=== PATIENT | female | born 1985 ===

== ENCOUNTER 2018-04-12 10:32 | Inpatient (IN) | payer MEDICARE, MEDICAID ==
[2018-04-12 10:33] VITALS: BMI 29.2
[2018-04-12] MEDS ORDERED: Sodium Chloride 0.9% 1,000 ML IV STA (11:38)
[2018-04-12 12:15] LABS: SQUAMOUS EPITHIAL 2 /hpf (0-5); URINE BILIRUBIN NEGATIVE (NEGATIVE); URINE BLOOD NEGATIVE (NEGATIVE); URINE CLARITY SLIGHTY-CLOUDY (Clear); URINE COLOR YELLOW (YELLOW); URINE GLUCOSE (UA) >=500 mg/dL (Normal); URINE LEUKOCYTE ESTERASE NEG Leu/uL (Negative); URINE PROTEIN 30 mg/dL (NEGATIVE); URINE UROBILINOGEN 0.2-1.0 mg/dL (0.2-1.0)
[2018-04-12 13:04] LABS: BASO # 0.1 K/uL (0.0-0.2); BASO % 0.7 % (0.0-2.0); HEMOGLOBIN 14.8 g/dL (12.0-16.0); LYMPH % 4.8 % (20.0-40.0); MEAN CORPUSCULAR HEMOGLOBIN 31.7 pg (27.0-31.0); MEAN CORPUSCULAR HGB CONC 33.7 g/dL (33.0-37.0); MEAN PLATELET VOLUME 9.1 fl (7.2-11.7); MONO # 0.7 K/uL (0.0-0.8); MONO % 3.4 % (0.0-10.0); NEUT # 19.4 K/uL (1.8-7.0); NEUT % 91.1 % (50.0-75.0); NRBC % 0.1 % (0.0-0.0); PLATELET COUNT 350 K/uL (130-400); RBC 4.68 Mil/uL (3.80-5.20); RED CELL DISTRIBUTION WIDTH 13.7 % (11.5-14.5); WHITE BLOOD COUNT 21.3 K/uL (4.8-10.8)
[2018-04-12 13:07] LABS: ALB/GLOB RATIO 1.2 (1.0-2.1); ALBUMIN 5.3 g/dL (3.5-5.0); BLOOD UREA NITROGEN 20 mg/dl (7-17); CALCIUM 10.7 mg/dL (8.4-10.2); GFR NON-AFRICAN AMERICAN > 60
[2018-04-12 13:16] LABS: ALT/SGPT 30 U/L (9-52); AST/SGOT 34 U/L (14-36)
[2018-04-12 14:33] LABS: BANDS 1 % (0-2); BASOPHIL 1 % (0-2); HYPERSEGMENTATION PRESENT; LYMPHOCYTE 3 % (20-50); MONOCYTE 2 % (0-10); NEUTROPHIL 93 % (42-75); PLATELET ESTIMATE NORMAL (NORMAL); TOTAL CELLS COUNTED 100
--- NOTE | 2018-04-12 14:51 | ED PDOC ---
HPI: Abdomen Time Seen by Provider: 04/12/18 10:59 Chief Complaint (Nursing): Back Pain History Per: Patient (Renae presents to the ER because of right sided hip and thigh pain. She was seen at [facility] yesterday because of abdominal pain and vomiting multiple episodes. She was given a diagnosis of hyperemesis gravidarum after it was discovered that she is , making her with a miscarriage. She is also a type1 DM with h/o DKA with neuropathy. She had to stop some of pain meds because of the .) Outside of [place] travel?: No Past Medical History Reviewed: Historical Data Vital Signs: Last Vital Signs Temp 98.1 F 04/12/18 10:44 Pulse 103 H 04/12/18 10:44 Resp 19 04/12/18 10:44 BP 149/95 H 04/12/18 10:44 Pulse Ox 96 04/12/18 10:44 - Medical History PMH: Anxiety, Arthritis, Depression, Diabetes (Type 1), Gastritis, HTN, Hypercholesterolemia, Hyperthyroidism, Hypothyroidism, Migraine, Pancreatitis Denies: Chronic Kidney Disease - Surgical History Surgical History: Appendectomy (2014) - Family History Family History: States: Unknown Family Hx - Immunization History Hx Tetanus Toxoid Vaccination: No Hx Influenza Vaccination: No Hx Pneumococcal Vaccination: No - Home Medications Home Medications: Ambulatory Orders Medication Instructions Recorded Insulin Lispro [Humalog Kwikpen 0 unit SQ TID 08/08/17 U-100] Clonazepam [Klonopin] 0.5 mg PO DAILY 08/21/17 DULoxetine [Cymbalta] 30 mg PO DAILY 08/21/17 Ezetimibe/Simvastatin [Vytorin 1 tab PO DAILY 08/21/17 10-10 mg Tablet] Levothyroxine Sodium 0.05 mg PO DAILY 08/21/17 Metoclopramide [Reglan] 10 mg PO DAILY 08/21/17 Ondansetron ODT [Zofran ODT] 4 mg PO DAILY 08/21/17 Pregabalin [Lyrica] 75 mg PO DAILY 08/21/17 QUEtiapine [SEROquel] 50 mg PO DAILY 08/21/17 Sertraline [Zoloft] 100 mg PO DAILY 08/21/17 Sucralfate [Carafate] 1 gm PO DAILY 08/21/17 Zolpidem [Ambien] 10 mg PO DAILY 08/21/17 Ezetimibe [Zetia] 10 mg PO HS tab 09/01/17 Insulin Glargine, Recombina 40 unit SC HS 30 Days unit 09/01/17 [Lantus] Rosuvastatin Calcium 2.5 [Crestor] 2.5 mg PO HS #30 tab 09/01/17 Telavancin Hydrochloride [Vibativ] 750 mg IVPB Q24H 35 Days vial 09/01/17 cloNIDine [Catapres] 0.1 mg PO HS #30 tab 09/01/17 Gabapentin [Neurontin] 300 mg PO DAILY 30 Days cap 11/25/17 Insulin Aspart, Recombinant 10 unit SC AC 30 Days unit 11/25/17 [Novolog] Metoclopramide [Reglan] 1 tab PO TID PRN #25 tab 04/11/18 - Allergies Allergies/Adverse Reactions: Allergies Allergy/AdvReac Type Severity Reaction Status Date / Time apple Allergy RASH Verified 04/12/18 10:38 jain Allergy RASH Verified 04/12/18 10:38 EGG Allergy RASH Verified 04/12/18 10:38 peanut Allergy RASH Verified 04/12/18 10:38 walnut Allergy RASH Verified 04/12/18 10:38 seasonal Allergy RASH Uncoded 04/12/18 10:38 Review of Systems ROS Statement: Except As Marked, All Systems Reviewed And Found Negative Constitutional: Negative for: Fever, Chills Gastrointestinal: Positive for: Nausea, Vomiting Genitourinary Female: Negative for: Dysuria, Frequency Musculoskeletal: Positive for: Leg Pain Physical Exam - Reviewed Nursing Documentation Reviewed: Yes Vital Signs Reviewed: Yes - Physical Exam Appears: Positive for: Well, Non-toxic, Uncomfortable Head Exam: Positive for: ATRAUMATIC, NORMAL INSPECTION, NORMOCEPHALIC Skin: Positive for: Normal Color, Warm, DRY Eye Exam: Positive for: EOMI, Normal appearance, PERRL ENT: Positive for: Normal ENT Inspection Neck: Positive for: Normal, Painless ROM Cardiovascular/Chest: Positive for: Regular Rate, Rhythm Respiratory: Positive for: CNT, Normal Breath Sounds Gastrointestinal/Abdominal: Positive for: Normal Exam, Soft Back: Positive for: Normal Inspection Extremity: Positive for: Normal ROM Neurologic/Psych: Positive for: Alert, Oriented - Laboratory Results Result Diagrams: 04/12/18 12:16 04/12/18 12:16 - ECG O2 Sat by Pulse Oximetry: 96 Medical Decision Making Medical Decision Making: given patient's h/o type1 DM and hyperemesis, patient should benefit from admission for hydration and control of her symptoms. Case d/w Dr. Montoya. Patient's PMD NinaYisel Dang does not admit here. Patient's clinical science consultant is Ronnell Yi. Disposition - Clinical Impression Clinical Impression: Hyperemesis - Patient ED Disposition Is Patient to be Admitted: Transfer of Care Doctor Will See Patient In The: Hospital - Disposition Disposition: Transfer of Care Disposition Time: 14:54 Condition: GUARDED Instructions: Nausea and Vomiting, Adult (DC) - Pt Status Changed To: Hospital Disposition Of: Observation - POA Present On Arrival: None
[2018-04-12] MEDS ORDERED: Insulin Lispro (humaLOG) 100 Units/ml Inj SC STA (15:42)
[2018-04-12] MEDS ORDERED: Acetaminophen 650mg/20.3ml solution UD PO ONE (15:44)
[2018-04-12] MEDS ORDERED: Acetaminophen 325 MG/10.15 ML ONE (15:48)
[2018-04-12 16:55] LABS: BARBITURATES, UR NEGATIVE (NEGATIVE); BENZODIAZEPINES, UR NEGATIVE (NEGATIVE); OPIATES, UR NEGATIVE (NEGATIVE); PHENCYCLIDINE, UR NEGATIVE (NEGATIVE)
[2018-04-12] MEDS ORDERED: Glucagon Recombinant 1 mg Inj IM PRN (17:24)
[2018-04-12] MEDS ORDERED: Dextrose 50% SYRINGE Inj (50 ml) IV PRN (17:24)
[2018-04-12] MEDS: Potassium Chl 40 mEq in D5-1/2 1,000 ML IV SCH ×3 (17:32→22:21)
[2018-04-12 17:49] LABS: BLOOD UREA NITROGEN 20 mg/dl (7-17); GFR NON-AFRICAN AMERICAN > 60
--- NOTE | 2018-04-12 18:10 | US ---
Date of service: 04/12/2018 PROCEDURE: OB Pelvic Ultrasound HISTORY: FHR LMP: COMPARISON: None available. FINDINGS: UTERUS: Gestational sac: Single intrauterine gestational sac. Gestational sac diameter measures 0.3 cm too small to characterize gestational age. Yolk sac and pole are not visualized. Jewell-gestational hemorrhage: None. Uterus measures 6.7 x 3.2 x 4.9 cm. Normal in size and appearance. CERVIX: Measures 3.1 cm. Long and closed. No cervical abnormality seen. RIGHT OVARY: Measures 3.1 x 2.2 x 3.6 cm. No mass lesion. Normal flow. There is a 1.8 x 1.2 x 1.6 cm complicated cyst. LEFT OVARY: Measures 2.9 x 1.8 x 2.4 cm. No solid mass. Normal flow. FREE FLUID: None. OTHER FINDINGS: None. IMPRESSION: Single intrauterine gestational sac too small to characterize gestational age. Short-term clinical and ultrasound follow-up is recommended to confirm viability.
--- NOTE | 2018-04-12 18:46 | CP.PCM.HP ---
Past Patient History - Infectious Disease Hx of Infectious Diseases: None - Tetanus Immunizations Tetanus Immunization: Unknown - Past Medical History & Family History Past Medical History?: Yes - Past Social History Smoking Status: Never Smoked - CARDIAC Hx Hypercholesterolemia: Yes Hx Hypertension: Yes - NEUROLOGICAL Hx Migraine: Yes - HEENT Hx HEENT Problems: No - RENAL Hx Chronic Kidney Disease: No - ENDOCRINE/METABOLIC Hx Hyperthyroidism: Yes Hx Hypothyroidism: Yes - INTEGUMENTARY Hx Psoriasis: Yes - MUSCULOSKELETAL/RHEUMATOLOGICAL Hx Arthritis: Yes - GASTROINTESTINAL Hx Gastritis: Yes Hx Pancreatitis: Yes - PSYCHIATRIC Hx Anxiety: Yes Hx Depression: Yes - SURGICAL HISTORY Hx Appendectomy: Yes (2014) - ANESTHESIA Hx Anesthesia: Yes Hx Anesthesia Reactions: No Hx Malignant Hyperthermia: No Meds Allergies/Adverse Reactions: Allergies Allergy/AdvReac Type Severity Reaction Status Date / Time apple Allergy RASH Verified 04/12/18 10:38 jain Allergy RASH Verified 04/12/18 10:38 EGG Allergy RASH Verified 04/12/18 10:38 peanut Allergy RASH Verified 04/12/18 10:38 walnut Allergy RASH Verified 04/12/18 10:38 seasonal Allergy RASH Uncoded 04/12/18 10:38 Physical Exam - Constitutional Appears: Well - Head Exam Head Exam: ATRAUMATIC, NORMAL INSPECTION, NORMOCEPHALIC - Eye Exam Eye Exam: EOMI, Normal appearance, PERRL Pupil Exam: NORMAL ACCOMODATION, PERRL - ENT Exam ENT Exam: Mucous Membranes Moist, Normal Exam - Neck Exam Neck exam: Positive for: Normal Inspection - Respiratory Exam Respiratory Exam: Decreased Breath Sounds - Cardiovascular Exam Cardiovascular Exam: REGULAR RHYTHM, +S1, +S2 - GI/Abdominal Exam GI & Abdominal Exam: Diminished Bowel Sounds, Soft - Rectal Exam Rectal Exam: Deferred Results - Vital Signs Recent Vital Signs: Last Vital Signs Temp 98.8 F 04/12/18 17:42 Pulse 85 04/12/18 17:42 Resp 20 04/12/18 17:42 BP 144/89 04/12/18 17:42 Pulse Ox 100 04/12/18 17:42 - Labs Result Diagrams: 04/12/18 12:16 04/12/18 16:56 Labs: Laboratory Results - last 24 hr 04/12/18 04/12/18 04/12/18 10:38 11:52 11:56 WBC RBC Hgb Hct MCV MCH MCHC RDW Plt Count MPV Neut % (Auto) Lymph % (Auto) [place] % (Auto) Eos % (Auto) Baso % (Auto) Neut # (Auto) Lymph # (Auto) [place] # (Auto) Eos # (Auto) Baso # (Auto) Neutrophils % (Manual) Band Neutrophils % Lymphocytes % (Manual) Monocytes % (Manual) Basophils % (Manual) Hypersegmented Polys Platelet Estimate RBC Morphology Sodium Potassium Chloride Carbon Dioxide Anion Gap BUN Creatinine Est GFR ( Amer) Est GFR (Non-Af Amer) POC Glucose (mg/dL) 237 H 264 H Random Glucose Lactic Acid Calcium Total Bilirubin AST ALT Alkaline Phosphatase Total Protein Albumin Globulin Albumin/Globulin Ratio Lipase Beta HCG, Quant Urine Color Yellow Urine Clarity Slighty-cloudy Urine pH 5.0 Ur Specific Cardale 1.026 Urine Protein 30 Urine Glucose (UA) >=500 Urine Ketones 80 Urine Blood Negative Urine Nitrate Negative Urine Bilirubin Negative Urine Urobilinogen 0.2-1.0 Ur Leukocyte Esterase Neg Urine RBC (Auto) 2 Urine Microscopic WBC 1 Ur Squamous Epith Cells 2 Hyaline Casts 3-5 H Urine Opiates Screen Urine Methadone Screen Ur Barbiturates Screen Ur Phencyclidine Scrn Ur Amphetamines Screen U Benzodiazepines Scrn U Oth Cocaine Metabols U Cannabinoids Screen 04/12/18 04/12/18 04/12/18 12:16 12:16 15:29 WBC 21.3 H RBC 4.68 Hgb 14.8 Hct 44.0 MCV 94.0 MCH 31.7 H MCHC 33.7 RDW 13.7 Plt Count 350 MPV 9.1 Neut % (Auto) 91.1 H Lymph % (Auto) 4.8 L [place] % (Auto) 3.4 Eos % (Auto) 0.0 Baso % (Auto) 0.7 Neut # (Auto) 19.4 H Lymph # (Auto) 1.0 [place] # (Auto) 0.7 Eos # (Auto) 0.0 Baso # (Auto) 0.1 Neutrophils % (Manual) 93 H Band Neutrophils % 1 Lymphocytes % (Manual) 3 L Monocytes % (Manual) 2 Basophils % (Manual) 1 Hypersegmented Polys Present Platelet Estimate Normal RBC Morphology Normal Sodium 144 Potassium 4.6 Chloride 101 Carbon Dioxide 18 L Anion Gap 30 H BUN 20 H Creatinine 0.6 L Est GFR ( Amer) > 60 Est GFR (Non-Af Amer) > 60 POC Glucose (mg/dL) Random Glucose 230 H Lactic Acid Calcium 10.7 H Total Bilirubin 0.8 AST 34 ALT 30 Alkaline Phosphatase 100 Total Protein 9.8 H Albumin 5.3 H Globulin 4.5 H Albumin/Globulin Ratio 1.2 Lipase 157 Beta HCG, Quant 1463.40 Urine Color Urine Clarity Urine pH Ur Specific Cardale Urine Protein Urine Glucose (UA) Urine Ketones Urine Blood Urine Nitrate Urine Bilirubin Urine Urobilinogen Ur Leukocyte Esterase Urine RBC (Auto) Urine Microscopic WBC Ur Squamous Epith Cells Hyaline Casts Urine Opiates Screen Urine Methadone Screen Ur Barbiturates Screen Ur Phencyclidine Scrn Ur Amphetamines Screen U Benzodiazepines Scrn U Oth Cocaine Metabols U Cannabinoids Screen 04/12/18 04/12/18 04/12/18 16:34 16:56 16:56 WBC RBC Hgb Hct MCV MCH MCHC RDW Plt Count MPV Neut % (Auto) Lymph % (Auto) [place] % (Auto) Eos % (Auto) Baso % (Auto) Neut # (Auto) Lymph # (Auto) [place] # (Auto) Eos # (Auto) Baso # (Auto) Neutrophils % (Manual) Band Neutrophils % Lymphocytes % (Manual) Monocytes % (Manual) Basophils % (Manual) Hypersegmented Polys Platelet Estimate RBC Morphology Sodium 142 Potassium 3.2 L Chloride 103 Carbon Dioxide 18 L Anion Gap 24 H BUN 20 H Creatinine 0.5 L Est GFR ( Amer) > 60 Est GFR (Non-Af Amer) > 60 POC Glucose (mg/dL) Random Glucose 182 H Lactic Acid 1.5 Calcium 10.0 Total Bilirubin AST ALT Alkaline Phosphatase Total Protein Albumin Globulin Albumin/Globulin Ratio Lipase Beta HCG, Quant Urine Color Urine Clarity Urine pH Ur Specific Cardale Urine Protein Urine Glucose (UA) Urine Ketones Urine Blood Urine Nitrate Urine Bilirubin Urine Urobilinogen Ur Leukocyte Esterase Urine RBC (Auto) Urine Microscopic WBC Ur Squamous Epith Cells Hyaline Casts Urine Opiates Screen Negative Urine Methadone Screen Negative Ur Barbiturates Screen Negative Ur Phencyclidine Scrn Negative Ur Amphetamines Screen Negative U Benzodiazepines Scrn Negative U Oth Cocaine Metabols Negative U Cannabinoids Screen Positive H
[2018-04-12 22:02] LABS: BLOOD UREA NITROGEN 18 mg/dl (7-17); GFR NON-AFRICAN AMERICAN > 60
[2018-04-12] MEDS: Insulin Regular 100 units/ml SC SCH (22:19)
[2018-04-13] MEDS: Potassium Chl 40 mEq in D5-1/2 1,000 ML IV SCH ×2 (02:37→07:03)
[2018-04-13] MEDS ORDERED: Insulin Regular 100 units/ml SC STA (05:57)
[2018-04-13 05:58] LABS: MEAN CELL VOLUME 95.9 fl (81.0-99.0); MEAN CORPUSCULAR HEMOGLOBIN 31.9 pg (27.0-31.0); MEAN CORPUSCULAR HGB CONC 33.3 g/dL (33.0-37.0); RBC 4.38 Mil/uL (3.80-5.20); RED CELL DISTRIBUTION WIDTH 13.5 % (11.5-14.5); WHITE BLOOD COUNT 19.8 K/uL (4.8-10.8)
[2018-04-13 06:38] LABS: BLOOD UREA NITROGEN 12 mg/dl (7-17); CALCIUM 9.5 mg/dL (8.4-10.2); GFR NON-AFRICAN AMERICAN > 60
[2018-04-13] MEDS ORDERED: Insulin Regular 100 units/ml IV STA (07:16)
[2018-04-13] MEDS ORDERED: Sodium Chloride 0.9% 1,000 ML IV STA (07:21)
[2018-04-13] MEDS: Insulin Regular 100 units/ml SC SCH (08:19)
[2018-04-13] MEDS: Prenatal Multivit/Folic Acid/Iron Tab PO SCH (08:20)
[2018-04-13 10:50] LABS: BLOOD UREA NITROGEN 10 mg/dl (7-17); CALCIUM 9.2 mg/dL (8.4-10.2); GFR NON-AFRICAN AMERICAN > 60
--- NOTE | 2018-04-13 10:50 | CP.PCM.HP ---
<Royer Rubio - Last Filed: 04/13/18 16:39> History of Present Illness - History of Present Illness History of Present Illness: HPI Pt is a 32 y/o female with hx of IDDM, Gastroparesis, Peripheral Neuropathy, Anxiety/Panic disorder, and Opiod dependency who presented to ED with complaints of right flank and thigh pain she describes as "burning." Mother states this p ain is typical of her neuropathic pain that she has when she does not take her medication. Pt states she learned she was yesterday and has not been compliant with her medication so as to not harm the fetus. She also endoreses nausea and vomoting multiple times per day for the past week with poor po intake.Of note, pt was evaluated at [facility] ED yesterday for same symptoms, had TVUS that noted an early gestational sac, good blood flow to both ovaries, and no other abnormalities. She was treated with Zofran and discharged on Reglan with diagnosis Hyperemesis Gravidarum. Denies any cough, fever/chills, dysuria, diarrhea, constipation, recent illness, or prolonged immobility. PMD: Dr. Ronnell Dang Manager E Commerce: Dr. Yi PMHX: Anxiety/Panic Disorder, IDDM, neuropathy, gastroparesis Meds: See med rec Hospital admission: Pt has frequent admissions over the past year at [facility] for DKA Social: Smokes weed, deneis ehavy alcohol use, Opiod dependency (diagnosed by Psychiatrist at [facility] from admission in 02/2018) ED Course: -Vitals HR 103, BP 149/95, O2 sat 96 on rm air -Pt noted to be sleeping comfortably but upon awakening became hysterical complaining of pain, shortly after seen sleeping comfortably w/o intervention. -CBC: WBC 21.3 -Acchucheck 237 -CMP: Na 144, K 4.6, Cl 101, Aniong Gap 30, Bicarb 18, BUN 20, Cr 0.6 -S/P Zofran and Pepcid -Lispro 10 units -1 L NS bolus -Maintanence fluids D50.5 NS K40 at 250cc/hr Present on Admission - Present on Admission Any Indicators Present on Admission: No Past Patient History - Infectious Disease Hx of Infectious Diseases: None - Tetanus Immunizations Tetanus Immunization: Unknown - Past Medical History & Family History Past Medical History?: Yes - Past Social History Smoking Status: Never Smoked - CARDIAC Hx Hypercholesterolemia: Yes Hx Hypertension: Yes - NEUROLOGICAL Hx Migraine: Yes - HEENT Hx HEENT Problems: No - RENAL Hx Chronic Kidney Disease: No - ENDOCRINE/METABOLIC Hx Diabetes Mellitus Type 1: Yes Hx Hyperthyroidism: Yes Hx Hypothyroidism: Yes - HEMATOLOGICAL/ONCOLOGICAL Hx AIDS: No Hx Anemia: No Hx Blood Transfusions: No Hx Human Immunodeficiency Virus (HIV): No - INTEGUMENTARY Hx Psoriasis: Yes - MUSCULOSKELETAL/RHEUMATOLOGICAL Hx Arthritis: Yes Hx Falls: No - GASTROINTESTINAL Hx Gastritis: Yes Hx Pancreatitis: Yes - PSYCHIATRIC Hx Anxiety: Yes Hx Depression: Yes Hx Substance Use: No - SURGICAL HISTORY Hx Appendectomy: Yes (2014) - ANESTHESIA Hx Anesthesia: Yes Hx Anesthesia Reactions: No Hx Malignant Hyperthermia: No Meds Allergies/Adverse Reactions: Allergies Allergy/AdvReac Type Severity Reaction Status Date / Time apple Allergy RASH Verified 04/12/18 10:38 jain Allergy RASH Verified 04/12/18 10:38 EGG Allergy RASH Verified 04/12/18 10:38 peanut Allergy RASH Verified 04/12/18 10:38 walnut Allergy RASH Verified 04/12/18 10:38 seasonal Allergy RASH Uncoded 04/12/18 10:38 Physical Exam - Constitutional Appears: No Acute Distress (Intermittely agitated but spotnaneously seen calm and sleeping) - Head Exam Head Exam: NORMAL INSPECTION - Eye Exam Eye Exam: Normal appearance - ENT Exam ENT Exam: Mucous Membranes Moist - Respiratory Exam Respiratory Exam: Clear to Auscultation Bilateral. absent: Rales, Wheezes - Cardiovascular Exam Cardiovascular Exam: REGULAR RHYTHM, +S1, +S2. absent: Systolic Murmur - GI/Abdominal Exam GI & Abdominal Exam: Distended, Normal Bowel Sounds, Soft. absent: Guarding, Tenderness - Extremities Exam Extremities exam: Positive for: normal capillary refill, normal inspection, pedal pulses present. Negative for: joint swelling - Back Exam Back exam: absent: CVA tenderness (L), CVA tenderness (R), rash noted - Neurological Exam Neurological exam: Alert, Oriented x3 - Psychiatric Exam Psychiatric exam: Anxious - Skin Skin Exam: Normal Color Additional comments: No rash or vesicles Results - Vital Signs Recent Vital Signs: Last Vital Signs Temp 97.9 F 04/13/18 09:55 Pulse 96 H 04/13/18 09:55 Resp 16 04/13/18 09:55 BP 161/89 H 04/13/18 09:55 Pulse Ox 100 04/13/18 09:55 - Labs Result Diagrams: 04/13/18 05:30 04/13/18 14:35 Labs: Laboratory Results - last 24 hr 04/12/18 04/12/18 04/12/18 10:38 11:52 11:56 WBC RBC Hgb Hct MCV MCH MCHC RDW Plt Count MPV Neut % (Auto) Lymph % (Auto) Rich % (Auto) Eos % (Auto) Baso % (Auto) Neut # (Auto) Lymph # (Auto) Rich # (Auto) Eos # (Auto) Baso # (Auto) Neutrophils % (Manual) Band Neutrophils % Lymphocytes % (Manual) Monocytes % (Manual) Basophils % (Manual) Hypersegmented Polys Platelet Estimate RBC Morphology Sodium Potassium Chloride Carbon Dioxide Anion Gap BUN Creatinine Est GFR ( Amer) Est GFR (Non-Af Amer) POC Glucose (mg/dL) 237 H 264 H Random Glucose Lactic Acid Calcium Total Bilirubin AST ALT Alkaline Phosphatase Total Protein Albumin Globulin Albumin/Globulin Ratio Lipase Beta HCG, Quant Urine Color Yellow Urine Clarity Slighty-cloudy Urine pH 5.0 Ur Specific [place] 1.026 Urine Protein 30 Urine Glucose (UA) >=500 Urine Ketones 80 Urine Blood Negative Urine Nitrate Negative Urine Bilirubin Negative Urine Urobilinogen 0.2-1.0 Ur Leukocyte Esterase Neg Urine RBC (Auto) 2 Urine Microscopic WBC 1 Ur Squamous Epith Cells 2 Hyaline Casts 3-5 H Urine Opiates Screen Urine Methadone Screen Ur Barbiturates Screen Ur Phencyclidine Scrn Ur Amphetamines Screen U Benzodiazepines Scrn U Oth Cocaine Metabols U Cannabinoids Screen 04/12/18 04/12/18 04/12/18 12:16 12:16 15:29 WBC 21.3 H RBC 4.68 Hgb 14.8 Hct 44.0 MCV 94.0 MCH 31.7 H MCHC 33.7 RDW 13.7 Plt Count 350 MPV 9.1 Neut % (Auto) 91.1 H Lymph % (Auto) 4.8 L Rich % (Auto) 3.4 Eos % (Auto) 0.0 Baso % (Auto) 0.7 Neut # (Auto) 19.4 H Lymph # (Auto) 1.0 Rich # (Auto) 0.7 Eos # (Auto) 0.0 Baso # (Auto) 0.1 Neutrophils % (Manual) 93 H Band Neutrophils % 1 Lymphocytes % (Manual) 3 L Monocytes % (Manual) 2 Basophils % (Manual) 1 Hypersegmented Polys Present Platelet Estimate Normal RBC Morphology Normal Sodium 144 Potassium 4.6 Chloride 101 Carbon Dioxide 18 L Anion Gap 30 H BUN 20 H Creatinine 0.6 L Est GFR ( Amer) > 60 Est GFR (Non-Af Amer) > 60 POC Glucose (mg/dL) Random Glucose 230 H Lactic Acid Calcium 10.7 H Total Bilirubin 0.8 AST 34 ALT 30 Alkaline Phosphatase 100 Total Protein 9.8 H Albumin 5.3 H Globulin 4.5 H Albumin/Globulin Ratio 1.2 Lipase 157 Beta HCG, Quant 1463.40 Urine Color Urine Clarity Urine pH Ur Specific [place] Urine Protein Urine Glucose (UA) Urine Ketones Urine Blood Urine Nitrate Urine Bilirubin Urine Urobilinogen Ur Leukocyte Esterase Urine RBC (Auto) Urine Microscopic WBC Ur Squamous Epith Cells Hyaline Casts Urine Opiates Screen Urine Methadone Screen Ur Barbiturates Screen Ur Phencyclidine Scrn Ur Amphetamines Screen U Benzodiazepines Scrn U Oth Cocaine Metabols U Cannabinoids Screen 04/12/18 04/12/18 04/12/18 15:48 16:34 16:56 WBC RBC Hgb Hct MCV MCH MCHC RDW Plt Count MPV Neut % (Auto) Lymph % (Auto) Rich % (Auto) Eos % (Auto) Baso % (Auto) Neut # (Auto) Lymph # (Auto) Rich # (Auto) Eos # (Auto) Baso # (Auto) Neutrophils % (Manual) Band Neutrophils % Lymphocytes % (Manual) Monocytes % (Manual) Basophils % (Manual) Hypersegmented Polys Platelet Estimate RBC Morphology Sodium 142 Potassium 3.2 L Chloride 103 Carbon Dioxide 18 L Anion Gap 24 H BUN 20 H Creatinine 0.5 L Est GFR ( Amer) > 60 Est GFR (Non-Af Amer) > 60 POC Glucose (mg/dL) 130 H Random Glucose 182 H Lactic Acid Calcium 10.0 Total Bilirubin AST ALT Alkaline Phosphatase Total Protein Albumin Globulin Albumin/Globulin Ratio Lipase Beta HCG, Quant Urine Color Urine Clarity Urine pH Ur Specific [place] Urine Protein Urine Glucose (UA) Urine Ketones Urine Blood Urine Nitrate Urine Bilirubin Urine Urobilinogen Ur Leukocyte Esterase Urine RBC (Auto) Urine Microscopic WBC Ur Squamous Epith Cells Hyaline Casts Urine Opiates Screen Negative Urine Methadone Screen Negative Ur Barbiturates Screen Negative Ur Phencyclidine Scrn Negative Ur Amphetamines Screen Negative U Benzodiazepines Scrn Negative U Oth Cocaine Metabols Negative U Cannabinoids Screen Positive H 04/12/18 04/12/18 04/12/18 16:56 17:58 21:00 WBC RBC Hgb Hct MCV MCH MCHC RDW Plt Count MPV Neut % (Auto) Lymph % (Auto) Rich % (Auto) Eos % (Auto) Baso % (Auto) Neut # (Auto) Lymph # (Auto) Rich # (Auto) Eos # (Auto) Baso # (Auto) Neutrophils % (Manual) Band Neutrophils % Lymphocytes % (Manual) Monocytes % (Manual) Basophils % (Manual) Hypersegmented Polys Platelet Estimate RBC Morphology Sodium 135 Potassium 3.9 Chloride 99 Carbon Dioxide 16 L Anion Gap 24 H BUN 18 H Creatinine 0.5 L Est GFR ( Amer) > 60 Est GFR (Non-Af Amer) > 60 POC Glucose (mg/dL) 160 H Random Glucose 351 H Lactic Acid 1.5 Calcium 9.0 Total Bilirubin AST ALT Alkaline Phosphatase Total Protein Albumin Globulin Albumin/Globulin Ratio Lipase Beta HCG, Quant Urine Color Urine Clarity Urine pH Ur Specific [place] Urine Protein Urine Glucose (UA) Urine Ketones Urine Blood Urine Nitrate Urine Bilirubin Urine Urobilinogen Ur Leukocyte Esterase Urine RBC (Auto) Urine Microscopic WBC Ur Squamous Epith Cells Hyaline Casts Urine Opiates Screen Urine Methadone Screen Ur Barbiturates Screen Ur Phencyclidine Scrn Ur Amphetamines Screen U Benzodiazepines Scrn U Oth Cocaine Metabols U Cannabinoids Screen 04/12/18 04/13/18 04/13/18 21:49 05:09 05:11 WBC RBC Hgb Hct MCV MCH MCHC RDW Plt Count MPV Neut % (Auto) Lymph % (Auto) Rich % (Auto) Eos % (Auto) Baso % (Auto) Neut # (Auto) Lymph # (Auto) Rich # (Auto) Eos # (Auto) Baso # (Auto) Neutrophils % (Manual) Band Neutrophils % Lymphocytes % (Manual) Monocytes % (Manual) Basophils % (Manual) Hypersegmented Polys Platelet Estimate RBC Morphology Sodium Potassium Chloride Carbon Dioxide Anion Gap BUN Creatinine Est GFR ( Amer) Est GFR (Non-Af Amer) POC Glucose (mg/dL) 341 H 401 H* 420 H* Random Glucose Lactic Acid Calcium Total Bilirubin AST ALT Alkaline Phosphatase Total Protein Albumin Globulin Albumin/Globulin Ratio Lipase Beta HCG, Quant Urine Color Urine Clarity Urine pH Ur Specific [place] Urine Protein Urine Glucose (UA) Urine Ketones Urine Blood Urine Nitrate Urine Bilirubin Urine Urobilinogen Ur Leukocyte Esterase Urine RBC (Auto) Urine Microscopic WBC Ur Squamous Epith Cells Hyaline Casts Urine Opiates Screen Urine Methadone Screen Ur Barbiturates Screen Ur Phencyclidine Scrn Ur Amphetamines Screen U Benzodiazepines Scrn U Oth Cocaine Metabols U Cannabinoids Screen 04/13/18 04/13/18 04/13/18 05:30 05:30 06:42 WBC 19.8 H RBC 4.38 Hgb 14.0 Hct 42.0 MCV 95.9 MCH 31.9 H MCHC 33.3 RDW 13.5 Plt Count 301 MPV Neut % (Auto) Lymph % (Auto) Rich % (Auto) Eos % (Auto) Baso % (Auto) Neut # (Auto) Lymph # (Auto) Rich # (Auto) Eos # (Auto) Baso # (Auto) Neutrophils % (Manual) Band Neutrophils % Lymphocytes % (Manual) Monocytes % (Manual) Basophils % (Manual) Hypersegmented Polys Platelet Estimate RBC Morphology Sodium 139 Potassium 4.2 Chloride 100 Carbon Dioxide 14 L Anion Gap 29 H BUN 12 Creatinine 0.5 L Est GFR ( Amer) > 60 Est GFR (Non-Af Amer) > 60 POC Glucose (mg/dL) 460 H* Random Glucose 457 H* D Lactic Acid Calcium 9.5 Total Bilirubin AST ALT Alkaline Phosphatase Total Protein Albumin Globulin Albumin/Globulin Ratio Lipase Beta HCG, Quant Urine Color Urine Clarity Urine pH Ur Specific [place] Urine Protein Urine Glucose (UA) Urine Ketones Urine Blood Urine Nitrate Urine Bilirubin Urine Urobilinogen Ur Leukocyte Esterase Urine RBC (Auto) Urine Microscopic WBC Ur Squamous Epith Cells Hyaline Casts Urine Opiates Screen Urine Methadone Screen Ur Barbiturates Screen Ur Phencyclidine Scrn Ur Amphetamines Screen U Benzodiazepines Scrn U Oth Cocaine Metabols U Cannabinoids Screen 04/13/18 10:22 WBC RBC Hgb Hct MCV MCH MCHC RDW Plt Count MPV Neut % (Auto) Lymph % (Auto) Rich % (Auto) Eos % (Auto) Baso % (Auto) Neut # (Auto) Lymph # (Auto) Rich # (Auto) Eos # (Auto) Baso # (Auto) Neutrophils % (Manual) Band Neutrophils % Lymphocytes % (Manual) Monocytes % (Manual) Basophils % (Manual) Hypersegmented Polys Platelet Estimate RBC Morphology Sodium Potassium Chloride Carbon Dioxide Anion Gap BUN Creatinine Est GFR ( Amer) Est GFR (Non-Af Amer) POC Glucose (mg/dL) 256 H Random Glucose Lactic Acid Calcium Total Bilirubin AST ALT Alkaline Phosphatase Total Protein Albumin Globulin Albumin/Globulin Ratio Lipase Beta HCG, Quant Urine Color Urine Clarity Urine pH Ur Specific [place] Urine Protein Urine Glucose (UA) Urine Ketones Urine Blood Urine Nitrate Urine Bilirubin Urine Urobilinogen Ur Leukocyte Esterase Urine RBC (Auto) Urine Microscopic WBC Ur Squamous Epith Cells Hyaline Casts Urine Opiates Screen Urine Methadone Screen Ur Barbiturates Screen Ur Phencyclidine Scrn Ur Amphetamines Screen U Benzodiazepines Scrn U Oth Cocaine Metabols U Cannabinoids Screen Assessment & Plan - Assessment and Plan (Free Text) Assessment: 32 y/o female with hx of IDDM, Gastroparesis, Peripheral Neuropathy, Anxiety/Panic disorder, and Opiod dependency admitted for Mild DKA with acute episodes of agitation and complaints of r. sided pain. DKA -Mild, precipitating factor likely non compliance with medication -Endocrinology consulted, Cam: NS @200, Humalog 6 units AC, Levemir 20 units HS, Soft Diabetic Diet -Hemoglobin a1c 11.8 Right Sided pain (Flank --> Thigh) -Chronic, Likely neuropathic pain -Restarted home med, Gabapending 300mg daily as PRN. Category C. -Will limit as much as possible -Pain management consult 1st Trimester -Early gestational sac seen -OBGYN consulted; pt needs care established - vitamins -Counseled on avoiding harmful substances to fetus. Anxiety/Panic disorder -Psych consult Opiod Dependency -Limit Opiods DVT ppx SCD's for now Discussed case with Dr. Montoya <Dax Montoya - Last Filed: 04/13/18 16:59> Results - Vital Signs Recent Vital Signs: Last Vital Signs Temp 98.9 F 04/13/18 16:00 Pulse 90 04/13/18 16:00 Resp 20 04/13/18 16:00 BP 121/57 L 04/13/18 16:00 Pulse Ox 96 04/13/18 16:00 - Labs Result Diagrams: 04/13/18 05:30 04/13/18 14:35 Labs: Laboratory Results - last 24 hr 04/12/18 04/12/18 04/12/18 15:48 16:56 16:56 WBC RBC Hgb Hct MCV MCH MCHC RDW Plt Count Sodium 142 Potassium 3.2 L Chloride 103 Carbon Dioxide 18 L Anion Gap 24 H BUN 20 H Creatinine 0.5 L Est GFR ( Amer) > 60 Est GFR (Non-Af Amer) > 60 POC Glucose (mg/dL) 130 H Random Glucose 182 H Hemoglobin A1c Lactic Acid 1.5 Calcium 10.0 04/12/18 04/12/18 04/12/18 17:58 21:00 21:49 WBC RBC Hgb Hct MCV MCH MCHC RDW Plt Count Sodium 135 Potassium 3.9 Chloride 99 Carbon Dioxide 16 L Anion Gap 24 H BUN 18 H Creatinine 0.5 L Est GFR ( Amer) > 60 Est GFR (Non-Af Amer) > 60 POC Glucose (mg/dL) 160 H 341 H Random Glucose 351 H Hemoglobin A1c Lactic Acid Calcium 9.0 04/13/18 04/13/18 04/13/18 05:09 05:11 05:30 WBC 19.8 H RBC 4.38 Hgb 14.0 Hct 42.0 MCV 95.9 MCH 31.9 H MCHC 33.3 RDW 13.5 Plt Count 301 Sodium Potassium Chloride Carbon Dioxide Anion Gap BUN Creatinine Est GFR ( Amer) Est GFR (Non-Af Amer) POC Glucose (mg/dL) 401 H* 420 H* Random Glucose Hemoglobin A1c Lactic Acid Calcium 04/13/18 04/13/18 04/13/18 05:30 05:30 06:42 WBC RBC Hgb Hct MCV MCH MCHC RDW Plt Count Sodium 139 Potassium 4.2 Chloride 100 Carbon Dioxide 14 L Anion Gap 29 H BUN 12 Creatinine 0.5 L Est GFR ( Amer) > 60 Est GFR (Non-Af Amer) > 60 POC Glucose (mg/dL) 460 H* Random Glucose 457 H* D Hemoglobin A1c 11.8 H Lactic Acid Calcium 9.5 04/13/18 04/13/18 04/13/18 10:22 10:27 12:45 WBC RBC Hgb Hct MCV MCH MCHC RDW Plt Count Sodium 140 Potassium 4.0 Chloride 106 Carbon Dioxide 14 L Anion Gap 24 H BUN 10 Creatinine 0.5 L Est GFR ( Amer) > 60 Est GFR (Non-Af Amer) > 60 POC Glucose (mg/dL) 256 H 225 H Random Glucose 296 H Hemoglobin A1c Lactic Acid Calcium 9.2 04/13/18 04/13/18 14:35 16:25 WBC RBC Hgb Hct MCV MCH MCHC RDW Plt Count Sodium 142 Potassium 3.7 Chloride 106 Carbon Dioxide 18 L Anion Gap 22 H BUN 9 Creatinine 0.5 L Est GFR ( Amer) > 60 Est GFR (Non-Af Amer) > 60 POC Glucose (mg/dL) 174 H Random Glucose 225 H Hemoglobin A1c Lactic Acid Calcium 9.4 Attending/Attestation - Attestation I have personally seen and examined this patient.: Yes I have fully participated in the care of the patient.: Yes I have reviewed all pertinent clinical information: Yes
[2018-04-13] MEDS: Sodium Chloride 0.9% 1,000 ML IV SCH ×3 (11:00→20:35)
[2018-04-13] MEDS ORDERED: Insulin Regular 100 units/ml SC ONE (11:27)
--- NOTE | 2018-04-13 13:16 | CP.PCM.CON ---
History of Present Illness - History of Present Illness History of Present Illness: Pt is a 32 y/o female with medical hx of IDDM, Gastroparesis, Peripheral Neuropathy,patient has a previous psychiatric history of depression, Anxiety/Panic disorder, and sedative anxiolytic and Opiod dependency who presented to ED with complaints of right flank and thigh pain she describes as "burning." Mother states this pain is typical of her neuropathic pain that she has when she does not take her medication. pt has been uncooperative with the interview, Pt states she learned she was yesterday and has not been compliant with her medication so as to not harm the fetus. pt reported being in pain, which has resulted in insomnia, pt denied changes in appetite, but restricting her food because of diabetes, denied any current symptoms of depression,affect anxious, appropriate affect denied suicidal or homicidal ideation , denied previous suicidal attempts, denied perceptual disturbances, non elicited, alert awake ox3 Past Patient History - Infectious Disease Hx of Infectious Diseases: None - Tetanus Immunizations Tetanus Immunization: Unknown - Past Medical History & Family History Past Medical History?: Yes - Past Social History Smoking Status: Never Smoked - CARDIAC Hx Hypercholesterolemia: Yes Hx Hypertension: Yes - NEUROLOGICAL Hx Migraine: Yes - HEENT Hx HEENT Problems: No - RENAL Hx Chronic Kidney Disease: No - ENDOCRINE/METABOLIC Hx Diabetes Mellitus Type 1: Yes Hx Hyperthyroidism: Yes Hx Hypothyroidism: Yes - HEMATOLOGICAL/ONCOLOGICAL Hx AIDS: No Hx Anemia: No Hx Blood Transfusions: No Hx Human Immunodeficiency Virus (HIV): No - INTEGUMENTARY Hx Psoriasis: Yes - MUSCULOSKELETAL/RHEUMATOLOGICAL Hx Arthritis: Yes Hx Falls: No - GASTROINTESTINAL Hx Gastritis: Yes Hx Pancreatitis: Yes - PSYCHIATRIC Hx Anxiety: Yes Hx Depression: Yes Hx Substance Use: No - SURGICAL HISTORY Hx Appendectomy: Yes (2014) - ANESTHESIA Hx Anesthesia: Yes Hx Anesthesia Reactions: No Hx Malignant Hyperthermia: No Meds Allergies/Adverse Reactions: Allergies Allergy/AdvReac Type Severity Reaction Status Date / Time apple Allergy RASH Verified 04/12/18 10:38 jain Allergy RASH Verified 04/12/18 10:38 EGG Allergy RASH Verified 04/12/18 10:38 peanut Allergy RASH Verified 04/12/18 10:38 walnut Allergy RASH Verified 04/12/18 10:38 seasonal Allergy RASH Uncoded 04/12/18 10:38 - Medications Medications: Current Medications Acetaminophen (Tylenol 325mg Tab) 650 mg PO Q6 PRN PRN Reason: Pain, moderate (4-7) Last Admin: 04/12/18 23:50 Dose: 650 mg Dextrose (Dextrose 50% Inj) 0 ml IV STAT PRN; Protocol PRN Reason: Hypoglycemia Protocol Dextrose (Glutose 15) 0 gm PO ONCE PRN; Protocol PRN Reason: Hypoglycemia Protocol Diphenhydramine HCl (Benadryl) 25 mg PO HS PRN PRN Reason: Insomnia Last Admin: 04/12/18 21:20 Dose: 25 mg Gabapentin (Neurontin) 300 mg PO DAILY PRN PRN Reason: Neuropathic pain, "burning" Glucagon (Glucagen Diagnostic Kit) 0 mg IM STAT PRN; Protocol PRN Reason: Hypoglycemia Protocol Potassium Chloride/Dextrose/Sod Cl (Potassium Chl 40 Meq In D5-1/2ns) 1,000 mls @ 250 mls/hr IV .Q4H [facility] Stop: 04/13/18 16:04 Last Admin: 04/13/18 07:03 Dose: 250 mls/hr Sodium Chloride (Sodium Chloride 0.9%) 1,000 mls @ 200 mls/hr IV .Q5H [facility] Stop: 04/14/18 11:43 Last Admin: 04/13/18 11:00 Dose: 200 mls/hr Insulin Detemir (Levemir) 20 units SC HS [facility] Insulin Human Lispro (Humalog) 6 units SC AC [facility] Insulin Human Lispro (Humalog) 0 units SC ACHS [facility] Metoclopramide HCl (Reglan) 10 mg IVP Q6 PRN PRN Reason: Nausea/Vomiting Last Admin: 04/13/18 03:48 Dose: 10 mg Multivit/Folic Acid/Iron () 1 tab PO DAILY [facility] Last Admin: 04/13/18 08:20 Dose: 1 tab Results - Vital Signs Recent Vital Signs: Last Vital Signs Temp 98.0 F 04/13/18 12:00 Pulse 88 04/13/18 12:00 Resp 18 04/13/18 12:00 BP 148/92 H 04/13/18 12:00 Pulse Ox 97 04/13/18 12:00 - Labs Result Diagrams: 04/13/18 05:30 04/13/18 10:27 Labs: Laboratory Results - last 24 hr 04/12/18 04/12/18 04/12/18 12:16 12:16 15:29 WBC 21.3 H RBC 4.68 Hgb 14.8 Hct 44.0 MCV 94.0 MCH 31.7 H MCHC 33.7 RDW 13.7 Plt Count 350 MPV 9.1 Neut % (Auto) 91.1 H Lymph % (Auto) 4.8 L Mccormick % (Auto) 3.4 Eos % (Auto) 0.0 Baso % (Auto) 0.7 Neut # (Auto) 19.4 H Lymph # (Auto) 1.0 Mccormick # (Auto) 0.7 Eos # (Auto) 0.0 Baso # (Auto) 0.1 Neutrophils % (Manual) 93 H Band Neutrophils % 1 Lymphocytes % (Manual) 3 L Monocytes % (Manual) 2 Basophils % (Manual) 1 Hypersegmented Polys Present Platelet Estimate Normal RBC Morphology Normal Sodium 144 Potassium 4.6 Chloride 101 Carbon Dioxide 18 L Anion Gap 30 H BUN 20 H Creatinine 0.6 L Est GFR ( Amer) > 60 Est GFR (Non-Af Amer) > 60 POC Glucose (mg/dL) Random Glucose 230 H Lactic Acid Calcium 10.7 H Total Bilirubin 0.8 AST 34 ALT 30 Alkaline Phosphatase 100 Total Protein 9.8 H Albumin 5.3 H Globulin 4.5 H Albumin/Globulin Ratio 1.2 Lipase 157 Beta HCG, Quant 1463.40 Urine Opiates Screen Urine Methadone Screen Ur Barbiturates Screen Ur Phencyclidine Scrn Ur Amphetamines Screen U Benzodiazepines Scrn U Oth Cocaine Metabols U Cannabinoids Screen 04/12/18 04/12/18 04/12/18 15:48 16:34 16:56 WBC RBC Hgb Hct MCV MCH MCHC RDW Plt Count MPV Neut % (Auto) Lymph % (Auto) Mccormick % (Auto) Eos % (Auto) Baso % (Auto) Neut # (Auto) Lymph # (Auto) Mccormick # (Auto) Eos # (Auto) Baso # (Auto) Neutrophils % (Manual) Band Neutrophils % Lymphocytes % (Manual) Monocytes % (Manual) Basophils % (Manual) Hypersegmented Polys Platelet Estimate RBC Morphology Sodium 142 Potassium 3.2 L Chloride 103 Carbon Dioxide 18 L Anion Gap 24 H BUN 20 H Creatinine 0.5 L Est GFR ( Amer) > 60 Est GFR (Non-Af Amer) > 60 POC Glucose (mg/dL) 130 H Random Glucose 182 H Lactic Acid Calcium 10.0 Total Bilirubin AST ALT Alkaline Phosphatase Total Protein Albumin Globulin Albumin/Globulin Ratio Lipase Beta HCG, Quant Urine Opiates Screen Negative Urine Methadone Screen Negative Ur Barbiturates Screen Negative Ur Phencyclidine Scrn Negative Ur Amphetamines Screen Negative U Benzodiazepines Scrn Negative U Oth Cocaine Metabols Negative U Cannabinoids Screen Positive H 04/12/18 04/12/18 04/12/18 16:56 17:58 21:00 WBC RBC Hgb Hct MCV MCH MCHC RDW Plt Count MPV Neut % (Auto) Lymph % (Auto) Mccormick % (Auto) Eos % (Auto) Baso % (Auto) Neut # (Auto) Lymph # (Auto) Mccormick # (Auto) Eos # (Auto) Baso # (Auto) Neutrophils % (Manual) Band Neutrophils % Lymphocytes % (Manual) Monocytes % (Manual) Basophils % (Manual) Hypersegmented Polys Platelet Estimate RBC Morphology Sodium 135 Potassium 3.9 Chloride 99 Carbon Dioxide 16 L Anion Gap 24 H BUN 18 H Creatinine 0.5 L Est GFR ( Amer) > 60 Est GFR (Non-Af Amer) > 60 POC Glucose (mg/dL) 160 H Random Glucose 351 H Lactic Acid 1.5 Calcium 9.0 Total Bilirubin AST ALT Alkaline Phosphatase Total Protein Albumin Globulin Albumin/Globulin Ratio Lipase Beta HCG, Quant Urine Opiates Screen Urine Methadone Screen Ur Barbiturates Screen Ur Phencyclidine Scrn Ur Amphetamines Screen U Benzodiazepines Scrn U Oth Cocaine Metabols U Cannabinoids Screen 04/12/18 04/13/18 04/13/18 21:49 05:09 05:11 WBC RBC Hgb Hct MCV MCH MCHC RDW Plt Count MPV Neut % (Auto) Lymph % (Auto) Mccormick % (Auto) Eos % (Auto) Baso % (Auto) Neut # (Auto) Lymph # (Auto) Mccormick # (Auto) Eos # (Auto) Baso # (Auto) Neutrophils % (Manual) Band Neutrophils % Lymphocytes % (Manual) Monocytes % (Manual) Basophils % (Manual) Hypersegmented Polys Platelet Estimate RBC Morphology Sodium Potassium Chloride Carbon Dioxide Anion Gap BUN Creatinine Est GFR ( Amer) Est GFR (Non-Af Amer) POC Glucose (mg/dL) 341 H 401 H* 420 H* Random Glucose Lactic Acid Calcium Total Bilirubin AST ALT Alkaline Phosphatase Total Protein Albumin Globulin Albumin/Globulin Ratio Lipase Beta HCG, Quant Urine Opiates Screen Urine Methadone Screen Ur Barbiturates Screen Ur Phencyclidine Scrn Ur Amphetamines Screen U Benzodiazepines Scrn U Oth Cocaine Metabols U Cannabinoids Screen 04/13/18 04/13/18 04/13/18 05:30 05:30 06:42 WBC 19.8 H RBC 4.38 Hgb 14.0 Hct 42.0 MCV 95.9 MCH 31.9 H MCHC 33.3 RDW 13.5 Plt Count 301 MPV Neut % (Auto) Lymph % (Auto) Mccormick % (Auto) Eos % (Auto) Baso % (Auto) Neut # (Auto) Lymph # (Auto) Mccormick # (Auto) Eos # (Auto) Baso # (Auto) Neutrophils % (Manual) Band Neutrophils % Lymphocytes % (Manual) Monocytes % (Manual) Basophils % (Manual) Hypersegmented Polys Platelet Estimate RBC Morphology Sodium 139 Potassium 4.2 Chloride 100 Carbon Dioxide 14 L Anion Gap 29 H BUN 12 Creatinine 0.5 L Est GFR ( Amer) > 60 Est GFR (Non-Af Amer) > 60 POC Glucose (mg/dL) 460 H* Random Glucose 457 H* D Lactic Acid Calcium 9.5 Total Bilirubin AST ALT Alkaline Phosphatase Total Protein Albumin Globulin Albumin/Globulin Ratio Lipase Beta HCG, Quant Urine Opiates Screen Urine Methadone Screen Ur Barbiturates Screen Ur Phencyclidine Scrn Ur Amphetamines Screen U Benzodiazepines Scrn U Oth Cocaine Metabols U Cannabinoids Screen 04/13/18 04/13/18 04/13/18 10:22 10:27 12:45 WBC RBC Hgb Hct MCV MCH MCHC RDW Plt Count MPV Neut % (Auto) Lymph % (Auto) Mccormick % (Auto) Eos % (Auto) Baso % (Auto) Neut # (Auto) Lymph # (Auto) Mccormick # (Auto) Eos # (Auto) Baso # (Auto) Neutrophils % (Manual) Band Neutrophils % Lymphocytes % (Manual) Monocytes % (Manual) Basophils % (Manual) Hypersegmented Polys Platelet Estimate RBC Morphology Sodium 140 Potassium 4.0 Chloride 106 Carbon Dioxide 14 L Anion Gap 24 H BUN 10 Creatinine 0.5 L Est GFR ( Amer) > 60 Est GFR (Non-Af Amer) > 60 POC Glucose (mg/dL) 256 H 225 H Random Glucose 296 H Lactic Acid Calcium 9.2 Total Bilirubin AST ALT Alkaline Phosphatase Total Protein Albumin Globulin Albumin/Globulin Ratio Lipase Beta HCG, Quant Urine Opiates Screen Urine Methadone Screen Ur Barbiturates Screen Ur Phencyclidine Scrn Ur Amphetamines Screen U Benzodiazepines Scrn U Oth Cocaine Metabols U Cannabinoids Screen Assessment & Plan - Assessment and Plan (Free Text) Assessment: mood disorder due to medical condition with depressive features generalized anxiety hx of opiate dependence Plan: pt at current time in early stage of advised patient about risk versus benefits of starting medications for anxiety / and pain and possible teratogenic effects pt prefers not to be on psychotropic medications at current time pt would benefit from starting therapy on discharge att current mental status pt not danger to self or others, psychiatrically cleared for discharge after medical clearance
[2018-04-13] MEDS: Insulin Lispro (humaLOG) 100 Units/ml Inj SC SCH ×3 (14:00→17:23)
[2018-04-13 15:28] LABS: BLOOD UREA NITROGEN 9 mg/dl (7-17); CALCIUM 9.4 mg/dL (8.4-10.2); GFR NON-AFRICAN AMERICAN > 60
[2018-04-13] MEDS ORDERED: Morphine 4 MG/ML VIAL IVP ONE (20:05)
[2018-04-13 21:00] LABS: BLOOD UREA NITROGEN 8 mg/dl (7-17); CALCIUM 8.7 mg/dL (8.4-10.2); GFR NON-AFRICAN AMERICAN > 60
[2018-04-13] MEDS: Sucralfate 1 gm/10 ml Oral Susp UD PO SCH (21:26)
[2018-04-13] MEDS: Insulin Detemir 100 Units/ml Inj SC SCH (21:26)
--- NOTE | 2018-04-13 22:27 | CON ---
DATE: 04/13/2018 ENDOCRINOLOGY CONSULT LOCATION: In ICU, room 421. HISTORY OF PRESENT ILLNESS: This is a 32-year-old female with known history of type 1 insulin-dependent diabetes with extremely poor metabolic control, presenting here with intractable vomiting and was evaluated initially at the [facility] ER to have hyperemesis gravidarum since she is now in her first trimester of and was sent home. She presented last night to the [facility] ER with persistent vomiting and upper abdominal pain and was evaluated to be mild diabetic ketoacidosis and admitted with dehydration and is now being referred for diabetic evaluation and management. PAST MEDICAL HISTORY: As mentioned above. History of type 1 insulin-dependent diabetes with an extremely poor metabolic control on her last stay and had multiple admissions to several [facility] in [facility] for exacerbations of diabetic gastroparesis. Her last A1c was 12.1% as noted. She was previously on dose regimen, the last one of which was Basaglar taken as 50 units at bedtime with NovoLog taken as 24 units b.i.d. before meals. History of hypertension and dyslipidemia, history of recent first trimester and there is a possibility as per the nurse that it may be either uterine versus ectopic location of the gestational sac and she is undergoing current workup at this time. FAMILY HISTORY: Positive for hypertension and diabetes. SOCIAL HISTORY: The patient has a supportive family. No known substance use. REVIEW OF SYSTEMS: As mentioned above. Admits to generalized body weakness with easy fatigability and tiredness and suboptimal energy level, admits to episodic bouts of dizziness and lightheadedness. No chest pains or palpitations. The oral intake has been extremely variable with meal portions because of episodic vomiting as noted. Also admits to vague upper abdominal pains and lower pelvic pain with supervening right hip and right thigh pain overnight as noted from the emergency room. PHYSICAL EXAMINATION: GENERAL: This is an average-built female, in no apparent distress. VITAL SIGNS: Blood pressure of 140/80, pulse of 100 beats per minute and regular, temperature 98, respirations 20. HEENT: Head normocephalic. Eyes anicteric with pink conjunctivae. Funduscopy not possible at this time. Ears, nose and throat otherwise normal. NECK: Supple. Thyroid gland is normal in size, no carotid bruits or any cervical adenopathy. CARDIOPULMONARY: Some adynamic precordium. S1, S2, is rapid and regular. LUNGS: Clear to auscultation. ABDOMEN: Flat, soft with positive bowel sounds. EXTREMITIES: No peripheral edema. Pulses are +2 bilaterally. LABORATORY DATA: Her chemistries done today showed a BUN of 12, sodium 139, potassium 4.2, chloride 108, CO2 of 14, glucose 457 and creatinine 0.5. The repeat glucose done in the ICU just about an hour ago upon transfer was 256 mg/dL. ASSESSMENT: This is a 32-year-old female with uncontrolled and decompensated type 1 insulin-dependent diabetes with suboptimal metabolic control, presenting here with intractable vomiting episodes which they ascribe to hyperemesis gravidarum with early diabetic ketoacidosis as initially evaluated with concomitant dehydration as noted. PLAN OF MANAGEMENT: We will initiate right away vigorous IV hydration with normal saline infusion running at 200 mL per hour to start now as discussed with the nursing staff. We are awaiting the repeat chemistries done a few minutes ago to determine the degree of acidosis at this time. The patient is able to tolerate some soft diet at this time and so we will start her with a soft, heart-healthy, moderate consistency diet at lunchtime. We will also initiate the basal and bolus insulin drug combination with Humalog to start with 6 units subcu before meals t.i.d. to start at lunchtime today as ordered. We will add Levemir at 20 units subcu at bedtime daily to start tonight. We will modify the coverage scale to obviate hypoglycemia and detailed orders have been given. We will obtain serial chemistries and supplement accordingly as needed. We will consider an insulin drip if her acidosis worsens as discussed with the nursing staff. They will notify me regarding the chemistry results as soon as possible. We will obtain serial chemistries and supplement accordingly as needed. We will follow up. Ginny Yi MD
[2018-04-14] MEDS ORDERED: Sodium Chloride 0.9% 1,000 ML IV SCH (02:36)
[2018-04-14] MEDS: Insulin Lispro (humaLOG) 100 Units/ml Inj SC SCH ×8 (02:36→21:16)
[2018-04-14 05:49] LABS: HEMOGLOBIN 12.7 g/dL (12.0-16.0); MEAN CELL VOLUME 95.3 fl (81.0-99.0); MEAN CORPUSCULAR HEMOGLOBIN 31.3 pg (27.0-31.0); MEAN CORPUSCULAR HGB CONC 32.8 g/dL (33.0-37.0); RBC 4.06 Mil/uL (3.80-5.20); RED CELL DISTRIBUTION WIDTH 13.6 % (11.5-14.5); WHITE BLOOD COUNT 18.4 K/uL (4.8-10.8)
[2018-04-14 06:16] LABS: ALB/GLOB RATIO 1.2 (1.0-2.1); ALBUMIN 3.8 g/dL (3.5-5.0); ALT/SGPT 22 U/L (9-52); AST/SGOT 19 U/L (14-36); BLOOD UREA NITROGEN 7 mg/dl (7-17); CALCIUM 8.8 mg/dL (8.4-10.2); GFR NON-AFRICAN AMERICAN > 60
[2018-04-14] MEDS: Sucralfate 1 gm/10 ml Oral Susp UD PO SCH ×4 (08:52→21:07)
[2018-04-14] MEDS: Prenatal Multivit/Folic Acid/Iron Tab PO SCH (08:53)
[2018-04-14 16:14] LABS: BLOOD UREA NITROGEN 5 mg/dl (7-17); GFR NON-AFRICAN AMERICAN > 60
--- NOTE | 2018-04-14 17:16 | CP.PCM.CON ---
History of Present Illness - History of Present Illness History of Present Illness: Pt is a with an early , presents in DKA secondary to IDDM Class C, history of gastroporesis, mood disorder, peripheral neuropathy, and history of opiod dependence, admitted for DKA. Patient recently found out she was p nash, BHCG = 2550 and transvaginal U/S shows very small gestational sac, no pole, no CRL. Patient does not remember when her official last period was, although she reports she had a period some time in March. Aliyah reports her periods are normally monthly, Feborber she had 2 periods and then Novemember one around the middle of the month. Patient currently sitting in bed, AAO x 3, den ies CP, no SOB, no N/V, tolerating PO diet, no vaginal bleeding, no abdominal pain. Review of Systems - Review of Systems Systems not reviewed;Unavailable: Acuity of Condition - Constitutional Constitutional: As Per HPI - EENT Nose/Mouth/Throat: As Per HPI - Cardiovascular Cardiovascular: As Per HPI - Respiratory Respiratory: As Per HPI - Gastrointestinal Gastrointestinal: Change in Bowel Habits - Genitourinary Genitourinary: As Per HPI - Reproductive: Female Reproductive:Female: As Per HPI Past Patient History - Infectious Disease Hx of Infectious Diseases: None - Tetanus Immunizations Tetanus Immunization: Unknown - Past Medical History & Family History Past Medical History?: Yes - Past Social History Smoking Status: Never Smoked - CARDIAC Hx Hypercholesterolemia: Yes Hx Hypertension: Yes - NEUROLOGICAL Hx Migraine: Yes - HEENT Hx HEENT Problems: No - RENAL Hx Chronic Kidney Disease: No - ENDOCRINE/METABOLIC Hx Diabetes Mellitus Type 1: Yes Hx Hyperthyroidism: Yes Hx Hypothyroidism: Yes - HEMATOLOGICAL/ONCOLOGICAL Hx AIDS: No Hx Anemia: No Hx Blood Transfusions: No Hx Human Immunodeficiency Virus (HIV): No - INTEGUMENTARY Hx Psoriasis: Yes - MUSCULOSKELETAL/RHEUMATOLOGICAL Hx Arthritis: Yes Hx Falls: No - GASTROINTESTINAL Hx Gastritis: Yes Hx Pancreatitis: Yes - PSYCHIATRIC Hx Anxiety: Yes Hx Depression: Yes Hx Substance Use: No - SURGICAL HISTORY Hx Appendectomy: Yes (2014) - ANESTHESIA Hx Anesthesia: Yes Hx Anesthesia Reactions: No Hx Malignant Hyperthermia: No Meds Allergies/Adverse Reactions: Allergies Allergy/AdvReac Type Severity Reaction Status Date / Time apple Allergy RASH Verified 04/12/18 10:38 jain Allergy RASH Verified 04/12/18 10:38 EGG Allergy RASH Verified 04/12/18 10:38 peanut Allergy RASH Verified 04/12/18 10:38 walnut Allergy RASH Verified 04/12/18 10:38 seasonal Allergy RASH Uncoded 04/12/18 10:38 - Medications Medications: Current Medications Acetaminophen (Tylenol 325mg Tab) 650 mg PO Q6 PRN PRN Reason: Pain, moderate (4-7) Last Admin: 04/14/18 03:40 Dose: 650 mg Dextrose (Dextrose 50% Inj) 0 ml IV STAT PRN; Protocol PRN Reason: Hypoglycemia Protocol Dextrose (Glutose 15) 0 gm PO ONCE PRN; Protocol PRN Reason: Hypoglycemia Protocol Diphenhydramine HCl (Benadryl) 25 mg PO HS PRN PRN Reason: Insomnia Last Admin: 04/13/18 22:05 Dose: 25 mg Gabapentin (Neurontin) 300 mg PO DAILY PRN PRN Reason: Neuropathic pain, "burning" Last Admin: 04/13/18 15:40 Dose: 300 mg Glucagon (Glucagen Diagnostic Kit) 0 mg IM STAT PRN; Protocol PRN Reason: Hypoglycemia Protocol Dextrose/Sodium Chloride (Dextrose 5%/0.9% Ns 1000 Ml) 1,000 mls @ 200 mls/hr IV .Q5H [facility] Stop: 04/15/18 11:25 Insulin Detemir (Levemir) 20 units SC HS [facility] Last Admin: 04/13/18 21:26 Dose: 20 unit Insulin Human Lispro (Humalog) 6 units SC AC [facility] Last Admin: 04/14/18 13:01 Dose: 6 units Insulin Human Lispro (Humalog) 0 units SC ACHS [facility] Last Admin: 04/14/18 16:55 Dose: Not Given Ondansetron HCl (Zofran Inj) 4 mg IVP Q4 PRN PRN Reason: Nausea/Vomiting Multivit/Folic Acid/Iron () 1 tab PO DAILY [facility] Last Admin: 04/14/18 08:53 Dose: 1 tab Sucralfate (Carafate Oral Susp) 1 gm PO QID [facility] Last Admin: 04/14/18 12:59 Dose: 1 gm Physical Exam - Head Exam Head Exam: ATRAUMATIC - Eye Exam Eye Exam: Normal appearance - Respiratory Exam Respiratory Exam: Clear to Auscultation Bilateral, NORMAL BREATHING PATTERN - Cardiovascular Exam Cardiovascular Exam: REGULAR RHYTHM, +S1, +S2 - GI/Abdominal Exam GI & Abdominal Exam: Normal Bowel Sounds, Soft - Extremities Exam Extremities exam: Positive for: normal inspection Results - Vital Signs Recent Vital Signs: Last Vital Signs Temp 98.7 F 04/14/18 16:00 Pulse 78 04/14/18 16:00 Resp 22 04/14/18 12:00 BP 124/65 04/14/18 16:00 Pulse Ox 99 04/14/18 16:00 - Labs Result Diagrams: 04/14/18 04:40 04/14/18 15:15 Labs: Laboratory Results - last 24 hr 04/13/18 04/13/18 04/13/18 20:40 20:40 20:59 WBC RBC Hgb Hct MCV MCH MCHC RDW Plt Count Sodium 138 Potassium 3.7 Chloride 103 Carbon Dioxide 19 L Anion Gap 20 BUN 8 Creatinine 0.4 L Est GFR ( Amer) > 60 Est GFR (Non-Af Amer) > 60 POC Glucose (mg/dL) 211 H Random Glucose 211 H Calcium 8.7 Total Bilirubin AST ALT Alkaline Phosphatase Total Protein Albumin Globulin Albumin/Globulin Ratio Lipase 61 Beta HCG, Quant 04/14/18 04/14/18 04/14/18 04:40 04:40 05:34 WBC 18.4 H RBC 4.06 Hgb 12.7 Hct 38.6 MCV 95.3 MCH 31.3 H MCHC 32.8 L RDW 13.6 Plt Count 262 Sodium 140 Potassium 3.8 Chloride 105 Carbon Dioxide 16 L Anion Gap 23 H BUN 7 Creatinine 0.5 L Est GFR ( Amer) > 60 Est GFR (Non-Af Amer) > 60 POC Glucose (mg/dL) 195 H Random Glucose 210 H Calcium 8.8 Total Bilirubin 0.6 AST 19 ALT 22 Alkaline Phosphatase 93 Total Protein 6.9 Albumin 3.8 Globulin 3.1 Albumin/Globulin Ratio 1.2 Lipase Beta HCG, Quant 2550.40 04/14/18 04/14/18 04/14/18 11:11 15:15 16:42 WBC RBC Hgb Hct MCV MCH MCHC RDW Plt Count Sodium 138 Potassium 3.5 L Chloride 104 Carbon Dioxide 16 L Anion Gap 22 H BUN 5 L Creatinine 0.4 L Est GFR ( Amer) > 60 Est GFR (Non-Af Amer) > 60 POC Glucose (mg/dL) 141 H 160 H Random Glucose 178 H Calcium 9.0 Total Bilirubin AST ALT Alkaline Phosphatase Total Protein Albumin Globulin Albumin/Globulin Ratio Lipase Beta HCG, Quant Assessment & Plan - Assessment and Plan (Free Text) Assessment: A/P 32 yo IDDM Class C with early gestation, admitted for DKA 1. Patient unsure of her dating, reports that had possible period maybe 3 wks ago. BHCG = 2550 and U/S shows barely measureable gestational sac. Could be appropriate for dates, or could be a missed . Unable to determine viability at this stage either due to dates being too early or possibly resulting in miscarriage. 2. Recommend repeat BHCG in 48-72 hours to see upward trend. If continues to increase appropriately, repeat U/S should be done in 2 wks. If BCH not rising appropriately, should be suspicious of a failed and repeat U/S still in about 1-2 wks 3. Recommend at this point since viability is unclear, to medically stabilize mother as top priority. 4. If following U/S shows viable embryo, patient to be follow up and be managed by a MFM in high risk clinic 5. Patient verbalized understanding of plan of care. Continue vitamins 6. All questions answered. Consult appreciated - Date & Time Date: 04/14/18 Time: 17:16
[2018-04-14] MEDS: Dextrose 5%/0.9% NS 1,000 ML IV SCH ×2 (17:54→23:30)
--- NOTE | 2018-04-14 18:02 | CP.PCM.PN ---
<Royer Rubio - Last Filed: 04/14/18 18:01> Subjective - Date & Time of Evaluation Date of Evaluation: 04/14/18 Time of Evaluation: 09:00 - Subjective Subjective: Agitated overnight, received Morphine. This morning appears calm. Discussed plan. Objective - Vital Signs/Intake and Output Vital Signs (last 24 hours): Temp Pulse Resp BP Pulse Ox 98.7 F 78 22 124/65 99 04/14/18 16:00 04/14/18 16:00 04/14/18 12:00 04/14/18 16:00 04/14/18 16:00 Intake and Output: 04/14/18 04/14/18 06:59 18:59 Intake Total 1840 200 Output Total 350 Balance 1490 200 - Medications Medications: Current Medications Acetaminophen (Tylenol 325mg Tab) 650 mg PO Q6 PRN PRN Reason: Pain, moderate (4-7) Last Admin: 04/14/18 03:40 Dose: 650 mg Dextrose (Dextrose 50% Inj) 0 ml IV STAT PRN; Protocol PRN Reason: Hypoglycemia Protocol Dextrose (Glutose 15) 0 gm PO ONCE PRN; Protocol PRN Reason: Hypoglycemia Protocol Diphenhydramine HCl (Benadryl) 25 mg PO HS PRN PRN Reason: Insomnia Last Admin: 04/13/18 22:05 Dose: 25 mg Gabapentin (Neurontin) 300 mg PO DAILY PRN PRN Reason: Neuropathic pain, "burning" Last Admin: 04/13/18 15:40 Dose: 300 mg Glucagon (Glucagen Diagnostic Kit) 0 mg IM STAT PRN; Protocol PRN Reason: Hypoglycemia Protocol Dextrose/Sodium Chloride (Dextrose 5%/0.9% Ns 1000 Ml) 1,000 mls @ 200 mls/hr IV .Q5H [facility] Stop: 04/15/18 11:25 Insulin Detemir (Levemir) 20 units SC HS [facility] Last Admin: 04/13/18 21:26 Dose: 20 unit Insulin Human Lispro (Humalog) 6 units SC AC [facility] Last Admin: 04/14/18 13:01 Dose: 6 units Insulin Human Lispro (Humalog) 0 units SC ACHS [facility] Last Admin: 04/14/18 16:55 Dose: Not Given Ondansetron HCl (Zofran Inj) 4 mg IVP Q4 PRN PRN Reason: Nausea/Vomiting Ondansetron HCl (Zofran Odt) 8 mg PO STAT STA Stop: 04/14/18 18:01 Multivit/Folic Acid/Iron () 1 tab PO DAILY [facility] Last Admin: 04/14/18 08:53 Dose: 1 tab Sucralfate (Carafate Oral Susp) 1 gm PO QID [facility] Last Admin: 04/14/18 12:59 Dose: 1 gm - Labs Labs: 04/14/18 04:40 04/14/18 15:15 - Constitutional Appears: No Acute Distress - Eye Exam Eye Exam: Normal appearance - ENT Exam ENT Exam: Mucous Membranes Moist - Neurological Exam Neurological Exam: Alert, Awake, Oriented x3 - Psychiatric Exam Psychiatric exam: Normal Affect - Skin Skin Exam: Normal Color Assessment and Plan - Assessment and Plan (Free Text) Assessment: 32 y/o female with hx of IDDM, Gastroparesis, Peripheral Neuropathy, Anxiety/Panic disorder, and Opiod dependency admitted for Mild DKA with acute episodes of agitation and complaints of r. sided pain. DKA -Mild improvement -Mild, precipitating factor likely non compliance with medication -Endocrinology consulted, Cam: Dw @200, Humalog 6 units AC, Levemir 20 units HS, Soft Diabetic Diet -Hemoglobin a1c 11.8 Right Sided pain (Flank --> Thigh) -Chronic, Likely neuropathic pain -Restarted home med, Gabapenting 300mg daily as PRN. Category C. -Will limit as much as possible -Pain management consult 1st Trimester -Early gestational sac seen -OBGYN consulted; pt needs care established - vitamins -Counseled on avoiding harmful substances to fetus. Anxiety/Panic disorder -Psych consult Opiod Dependency -Limit Opiods DVT ppx SCD's for now Discussed case with Dr. Montoya <Dax Montyoa - Last Filed: 04/15/18 10:27> Objective - Vital Signs/Intake and Output Vital Signs (last 24 hours): Temp Pulse Resp BP Pulse Ox 98.3 F 68 14 142/62 100 04/15/18 08:00 04/15/18 10:00 04/15/18 10:00 04/15/18 06:00 04/15/18 06:00 Intake and Output: 04/15/18 04/15/18 06:59 18:59 Intake Total 1600 1280 Balance 1600 1280 - Medications Medications: Current Medications Acetaminophen (Tylenol 325mg Tab) 650 mg PO Q6 PRN PRN Reason: Pain, moderate (4-7) Last Admin: 04/14/18 03:40 Dose: 650 mg Dextrose (Dextrose 50% Inj) 0 ml IV STAT PRN; Protocol PRN Reason: Hypoglycemia Protocol Dextrose (Glutose 15) 0 gm PO ONCE PRN; Protocol PRN Reason: Hypoglycemia Protocol Diphenhydramine HCl (Benadryl) 25 mg PO HS PRN PRN Reason: Insomnia Last Admin: 04/14/18 19:45 Dose: 25 mg Gabapentin (Neurontin) 300 mg PO DAILY PRN PRN Reason: Neuropathic pain, "burning" Last Admin: 04/15/18 08:42 Dose: 300 mg Glucagon (Glucagen Diagnostic Kit) 0 mg IM STAT PRN; Protocol PRN Reason: Hypoglycemia Protocol Dextrose/Sodium Chloride (Dextrose 5%/0.9% Ns 1000 Ml) 1,000 mls @ 200 mls/hr IV .Q5H [facility] Stop: 04/15/18 11:25 Last Admin: 04/15/18 09:24 Dose: 200 mls/hr Insulin Detemir (Levemir) 20 units SC HS [facility] Last Admin: 04/14/18 21:08 Dose: 20 unit Insulin Human Lispro (Humalog) 6 units SC AC [facility] Last Admin: 04/15/18 08:42 Dose: 6 units Insulin Human Lispro (Humalog) 0 units SC ACHS [facility] Last Admin: 04/15/18 07:44 Dose: Not Given Ondansetron HCl (Zofran Inj) 4 mg IVP Q4 PRN PRN Reason: Nausea/Vomiting Last Admin: 04/15/18 08:43 Dose: 4 mg Multivit/Folic Acid/Iron () 1 tab PO DAILY [facility] Last Admin: 04/15/18 08:43 Dose: Not Given Sucralfate (Carafate Oral Susp) 1 gm PO QID [facility] Last Admin: 04/15/18 08:58 Dose: 1 gm - Labs Labs: 04/15/18 05:30 04/15/18 05:30 Attending/Attestation - Attestation I have personally seen and examined this patient.: Yes I have fully participated in the care of the patient.: Yes I have reviewed all pertinent clinical information, including history, physical exam and plan: Yes
[2018-04-14] MEDS: Insulin Detemir 100 Units/ml Inj SC SCH (21:08)
[2018-04-14 22:14] VITALS: O2SAT 100
--- NOTE | 2018-04-14 22:45 | PN ---
DATE: 04/14/2018 LOCATION: Room 421, ICU. SUBJECTIVE: This is a 32-year-old female with recent uncontrolled type 1 insulin-dependent diabetes, presenting here with early diabetic ketoacidosis and dehydration, and is now improving slowly, both clinically and metabolically, as noted thereof. Her glycemic levels are fluctuating, but improved, and the glucose values have ranged from 141 to 195 and 160 mg/dL. LABORATORY DATA: Her latest chemistry showed a BUN of 5, sodium 138, potassium 3.5, chloride 104, CO2 16, glucose 178, and creatinine 0.4. ASSESSMENT: This is a 32-year-old female with uncontrolled and decompensated type 1 insulin-dependent diabetes, presenting here with marked hyperglycemic accelerations and intractable nausea, dyspepsia, and vomiting from the underlying diabetic gastroparesis as noted thereof. She also has intrauterine in the first trimester as noted. She clearly is a very high risk patient because of the extremes of glycemic fluctuations and frequent metabolic acidosis with chemical and opioid dependency on narcotic analgesics. PLAN OF MANAGEMENT: So at this time, we will continue the modified basal and bolus insulin regimen to allow for dose equilibration and keep her on the Humalog given as 6 units t.i.d. before meals as ordered. We will continue the Levemir given as 20 units subcu at bedtime daily as given. We will continue also the low-dose correction scale using Humulin insulin as ordered to obviate hypoglycemia. We will continue the vigorous IV hydration because of the persistent metabolic acidosis as noted thereof. We will change her IV to D5 normal saline running at 200 mL per hour as ordered. We will obtain serial chemistries and supplement accordingly as needed. We will follow. Ginny Yi MD
[2018-04-15] MEDS: Dextrose 5%/0.9% NS 1,000 ML IV SCH ×2 (04:30→09:24)
[2018-04-15 06:23] VITALS: BP 142/62
[2018-04-15 07:32] LABS: HEMOGLOBIN 12.1 g/dL (12.0-16.0); MEAN CELL VOLUME 94.4 fl (81.0-99.0); MEAN CORPUSCULAR HEMOGLOBIN 31.9 pg (27.0-31.0); MEAN CORPUSCULAR HGB CONC 33.8 g/dL (33.0-37.0); RBC 3.79 Mil/uL (3.80-5.20); RED CELL DISTRIBUTION WIDTH 13.2 % (11.5-14.5); WHITE BLOOD COUNT 9.3 K/uL (4.8-10.8)
[2018-04-15] MEDS: Insulin Lispro (humaLOG) 100 Units/ml Inj SC SCH ×3 (07:44→11:16)
[2018-04-15 07:58] LABS: BLOOD UREA NITROGEN 3 mg/dl (7-17); CALCIUM 8.3 mg/dL (8.4-10.2); GFR NON-AFRICAN AMERICAN > 60
[2018-04-15] MEDS ORDERED: Potassium Chloride 20 mEq ER Tab PO ONE ×2 (08:13→14:00)
[2018-04-15 08:25] VITALS: TEMP 98.3
[2018-04-15] MEDS: Sucralfate 1 gm/10 ml Oral Susp UD PO SCH ×3 (08:42→12:35)
[2018-04-15] MEDS: Prenatal Multivit/Folic Acid/Iron Tab PO SCH (08:43)
[2018-04-15 10:04] VITALS: RESP 14
--- NOTE | 2018-04-15 11:16 | PN ---
DATE: 04/15/2018 LOCATION: Room 421, ICU. SUBJECTIVE: This is a 32-year-old female with recent uncontrolled type 1 insulin-dependent diabetes, now being followed closely for metabolic management. Her oral intake has improved with no further vomiting episodes this morning as noted by the nursing staff. However, her meal portions are still very poor and suboptimal with variable oral intake at this point. Her glycemic levels are fluctuating but improved and the glucose values have ranged from 160 to 173 and 224 mg/dL. Her chemistry showed a BUN of 3, sodium 136, potassium 2.9, chloride 103, CO2 19, glucose 234 and creatinine 0.4. PLAN: So, at this time, we will change the IV hydration to half-normal saline with KCl 20 mEq running at 125 mL per hour as discussed with the nursing staff, but the patient has refused potassium supplementation through the IV fluids as discussed this morning. So, we will be adding oral potassium supplementation as given. She has been cleared for discharge by the primary physician as noted and so would recommend a modified dosing of her insulin regimen with Humalog given as 8 units t.i.d. before meals as ordered. We will also increase the Levemir to 24 units subcu at bedtime daily as given. We will titrate incrementally as indicated to optimize metabolic control. We will follow. Ginny Yi MD
[2018-04-15] MEDS ORDERED: Insulin Lispro (humaLOG) 100 Units/ml Inj SC SCH (11:30)
[2018-04-15 13:30] VITALS: PULSE 64
[2018-04-15] MEDS ORDERED: Insulin Detemir 100 Units/ml Inj SC SCH (22:00)
--- NOTE | 2018-04-16 22:00 | PQF ---
PROVIDER RESPONSE TEXT: Provider was unable to determine a response for this query. REVIEWER QUERY TEXT: Condition Necessitating Admission Please clarify if in agreement with ER MD and Offline Cutter : admission dxs. also include: Hyperem esis Gravidarum? OR: Disagree OR:Other explanation of clinical finding ER MD: Medical Decision Making: given patient's h/o type1 DM and hyperemesis, patient should benefi t from admission for hydration and control of her symptoms. Clinical Impression: Hyperemesis H and P includes: admitted for Mild DKA with acute episodes of agitation and complaints of r. sided pain. --DKA -Mild, precipitating factor likely non compliance with medication -Endocrinology consulted, Dr. Yi: NS @200, Humalog 6 units AC, Levemir 20 units HS, Soft Diabetic Diet -Hemoglobin a1c 11.8 --Right Sided pain (Flank --> Thigh) -Chronic, Likely neuropathic pain -Restarted home med, Gabapending 300mg daily as PRN. Category C. -Will limit as much as pos sible -Pain management consult --1st Trimester -Early gestational sac seen -OBGYN consulted; pt needs care establ ished - vitamins -Counseled on avoiding harmful substances to fetus. --Anxiety/Panic disorder -Psych consult --Opiod Dependency -Limit Opiods Endo consult: with uncontrolled and decompensated type 1 insulin-dependent diabetes with suboptimal m etabolic control, presenting here with intractable vomiting episodes which they ascribe to hyperemesis rum with early diabetic ketoacidosis as initially evaluated with concomitant dehydration as noted 04/12-04/14 :IVF's 1,000 mls/hr -> 999 mls/hr->200 ccs hr->100 ccs/hr The patient's Clinical Indicators include: -- Query created by: Valorie Flannery on 04/14/2018 3:47 PM Electronically signed by: Dax Montoya 04/16/2018 9:56 PM
== END 2018-04-15 13:50 | disposition home or self-care (01) | DRG 831 ==
LOC: H.ER 10:32 → H.ERHOLD 14:55 → OBSVTOIN 15:58 → H.TEL 18:40 → H.ICU/CCU 04-13 09:30
PROVIDERS: ADMIT Family Medicine; ATTEND Family Medicine
DX: O24.011 Pre-existing type 1 diabetes mellitus, in pregnancy, first trimester (principal); E10.10 Type 1 diabetes mellitus with ketoacidosis without coma; O99.321 Drug use complicating pregnancy, first trimester; F11.20 Opioid dependence, uncomplicated; O21.0 Mild hyperemesis gravidarum; E86.0 Dehydration; O99.281 Endocrine, nutritional and metabolic diseases complicating pregnancy, first trimester; E03.9 Hypothyroidism, unspecified; E10.42 Type 1 diabetes mellitus with diabetic polyneuropathy; O99.341 Other mental disorders complicating pregnancy, first trimester; F06.31 Mood disorder due to known physiological condition with depressive features; F41.1 Generalized anxiety disorder; F41.0 Panic disorder [episodic paroxysmal anxiety]; Z91.14 Patient's other noncompliance with medication regimen; Z79.4 Long term (current) use of insulin; Z3A.00 Weeks of gestation of pregnancy not specified; Z91.012 Allergy to eggs; Z91.010 Allergy to peanuts